=== PATIENT | female | born 1980 | race Caucasian/White ===

== ENCOUNTER 2020-12-07 21:25 | Inpatient (IN) | payer OTHER ==
[2020-12-07] MEDS ORDERED: LACTATED RINGERS 1,000 ML ONE (23:03)
[2020-12-07] MEDS ORDERED: AMPICILLIN/NS 2 GM/100 ML 2 GM/100 ML BAG IV ONE (23:14)
[2020-12-07] MEDS ORDERED: LIDOCAINE (2%) 20 MG/1 ML VIAL 20 ML MDV INFILTRATI ONE (23:14)
[2020-12-07] MEDS ORDERED: BUTORPHANOL 2 MG/1 ML INJ IV PRN ×2 (23:14)
[2020-12-07] MEDS ORDERED: ePHEDrine SULFATE 50 MG/1 ML INJ IV PRN (23:14)
[2020-12-07] MEDS ORDERED: TERBUTALINE 1 MG/1 ML INJ SUB-Q PRN (23:14)
[2020-12-07] MEDS ORDERED: MINERAL OIL 30 ML ORAL LIQD PO PRN (23:14)
--- NOTE | 2020-12-07 23:38 | History and Physical Report ---
History of Present Illness Date of examination: 12/07/20 Date of admission: 12/07/20 21:25 Chief complaint: " I was sent her by my doctor" History of present illness: 40 y/o female presents to [facility] L&D at 38.2 wks for an IOL r/t AMA and LGA. Pt denied LOF and VB. Admits to active FM. She initiated her pnc at [facility] at 7.5 wks. Pt had an uncomplicated preg except for a pos uti (staph aures) which was tx'd with abt, and a pos GBS. She has a pos Hep A, hx of delivering 10 lb infants x 4. She declined a MSAFP. Surg hx of D&C in 1998. Social and family hx neg. Pt was admitted to L&D for an IOL. Labs: O pos AB neg Rubella Immune, RPR neg, HgsAg neg UTI pos, HIV neg, MSAFP- declined Hgb 12.4 on 11/08/20, 1 hr GTT 102 GBS pos Past History Past Medical History: no pertinent history Past Surgical History: D&C Family/Genetic History: none Social history: - Obstetrical History Expected Date of Delivery: 12/19/20 Actual Gestation: 38 Week(s) 2 Day(s) : 7 Para: 4 Hx # Term Pregnancies: 4 Number of Pregnancies: 0 Spontaneous Abortions: 2 Induced : 0 Number of Living Children: 4 Medications and Allergies Allergies Allergy/AdvReac Type Severity Reaction Status Date / Time No Known Allergies Allergy Unverified 12/07/20 22:44 Home Medications Medication Instructions Recorded Confirmed Last Taken Type No.137/Iron/Folic Acd 1 each PO 12/07/20 12/06/20 History [[facility] Vitamins Tablet] Active Meds: Active Medications Butorphanol Tartrate (Butorphanol 2 Mg/1 Ml Inj) 1 mg IV Q2H PRN PRN Reason: Pain, Moderate(4-6) LABOR PAIN Butorphanol Tartrate (Butorphanol 2 Mg/1 Ml Inj) 2 mg IV Q2H PRN PRN Reason: Pain , Severe (7-10) Ephedrine Sulfate (Ephedrine Sulfate 50 Mg/1 Ml Inj) 10 mg IV Q2M PRN PRN Reason: Hypotension Fentanyl (Fentanyl 100 Mcg/2 Ml Inj) 100 mcg IV Q2H PRN PRN Reason: Pain,Severe (7-10) LABOR PAIN Oxytocin/Sodium Chloride (Pitocin/Ns 30 Unit/500ml) 30 units in 500 mls @ 2 mls/hr IV TITR GABI; Protocol Lactated Ringer's (Lactated Ringers) 1,000 mls @ 125 mls/hr IV DIRECT GABI Oxytocin/Sodium Chloride (Pitocin/Ns 30 Unit/500ml) 30 units in 500 mls @ 40 mls/hr IV TITR GABI; Protocol Ampicillin Sodium (Ampicillin/Ns 1 Gm/50 Ml) 1 gm in 50 mls @ 100 mls/hr IV Q4H GABI; Protocol Ampicillin Sodium (Ampicillin/Ns 2 Gm/100 Ml) 2 gm in 100 mls @ 100 mls/hr IV ONCE ONE; Protocol Stop: 12/08/20 00:13 Lidocaine (Lidocaine (2%) 20 Mg/1 Ml Vial 20 Ml Mdv) 20 ml INFILTRATI ONCE ONE Stop: 12/07/20 23:15 Mineral Oil (Mineral Oil 30 Ml Oral Liqd) 30 ml PO QHS PRN PRN Reason: Constipation Miscellaneous Medication ( No.137/Iron/Folic Acd [[facility]vs Vitamins Tablet]) 1 each PO QDAY GABI Terbutaline Sulfate (Terbutaline 1 Mg/1 Ml Inj) 0.25 mg SUB-Q ONCE PRN PRN Reason: Hyperstimulation/Hypertonicity Review of Systems All systems: negative Eyes: deferred Ears, nose, mouth and throat: deferred Breasts: normal Genitourinary: normal appearance Rectal Exam: deferred - Vital Signs Vital signs: Vital Signs Pulse BP 93 H 108/65 12/07/20 22:36 12/07/20 22:36 Temp Pulse Resp BP Pulse Ox 93 H 108/65 12/07/20 22:36 12/07/20 22:36 - Physical Exam Breasts: Positive: normal Abdomen: Positive: normal appearance, soft, normal bowel sounds, other (gravid) Genitourinary (Female): Positive: normal external genitalia, normal perenium Vulva: both: normal Vagina: Positive: normal moisture Uterus: Positive: enlarged, normal contour, other (gravid) Adnexa: both: normal Anus/Rectum: Positive: normal perianal skin Extremities: Positive: normal - Obstetrical FHR: auscultation normal, category 1 Uterine Contraction Monitor Mode: External Cervical Dilatation: 1 (per nurse) Cervical Effacement Percentage: 40 (per nurse) station: -3 Uterine Contraction Frequency (min): q5-6 Uterine Contraction Pattern: Regular Uterine Tone Measurement Phase: Resting Uterine Contraction Intensity: Mild Results All other labs normal. Assessment and Plan A: IUP@ 38.2 wks AMA, LGA Hx of 10lb infants x 4 GBS pos, Hep A pos P: Admit to L&D Continuous monitoring GBS prophylaxis Pain med/ Epidural prn Notify NICU of pt's med/ob hx Place Cervidil if uc slows Anticipate progress - Patient Problems (1) Term Current Visit: Yes Status: Acute (2) Positive GBS test Current Visit: Yes Status: Acute (3) AMA (advanced maternal age) multigravida 35+ Current Visit: Yes Status: Acute (4) LGA (large for gestational age) fetus Current Visit: Yes Status: Acute (5) Hepatitis A Current Visit: Yes Status: Acute
[2020-12-07] MEDS ORDERED: OXYTOCIN DRIP 30 UNITS/500 ML BAG IV SCH ×2 (23:45)
[2020-12-08 00:29] LABS: Hematocrit 38.8 % (30.3-42.9); Hemoglobin 13.2 gm/dl (10.1-14.3); Mean Corpuscular HGB Conc 34 % (30-34); Mean Corpuscular Volume 95 fl (79-97); Platelet Count 186 K/mm3 (140-440); Red Cell Distribution Width 13.7 % (13.2-15.2)
[2020-12-08] MEDS ORDERED: AMPICILLIN/NS 1 GM/50 ML 1 GM/50 ML BAG IV SCH (03:18)
[2020-12-08] MEDS ORDERED: DINOPROSTONE 10 MG VAG SUPP VG ONE (04:13)
[2020-12-08] MEDS: LACTATED RINGERS 1,000 ML IV SCH ×2 (05:30→11:16)
[2020-12-08] MEDS: fentaNYL 100 MCG/2 ML INJ IV PRN ×2 (08:28→11:13)
[2020-12-08] MEDS ORDERED: PRENATAL VIT27-FE FUMARATE-FOLIC ACID VIT TAB PO SCH (10:00)
[2020-12-08] MEDS ORDERED: AMPICILLIN/NS 2 GM/100 ML 2 GM/100 ML BAG IV ONE ×2 (11:09→11:11)
--- NOTE | 2020-12-08 11:18 | Event Note ---
Date: 12/08/20 Assumed care or patient. Patient reports contractions every 3 minutes. Meconium fluid noted on chux pad. SVE 4.5/60/-3/cephalic/posterior. Patient requests epidural. IV fluid bolus started. Informed nurse to give GBS prophylaxis. Cervidil removed. FHR tracing reassuring.
[2020-12-08] MEDS ORDERED: LIDOCAINE (2%) 20 MG/1 ML VIAL 20 ML MDV INFILTRATI ONE (12:29)
--- NOTE | 2020-12-08 13:30 | Procedure Note ---
OB Delivery Note - Delivery Date of Delivery: 12/08/20 Surgeon: RAMONA GUARDADO Estimated blood loss: 200cc - Vaginal Delivery presentation: vertex Delivery position: OA Intrapartum events: none Delivery induction: cervidil Delivery monitor: external FHT, external uterine Route of delivery: Delivery placenta: spontaneous Delivery cord: 3 umbilical vessels Episiotomy: none Delivery laceration: 2nd degree Delivery repair: vicryl Anesthesia: local Delivery comments: Spontaneous vaginal delivery at 12:22 of liveborn male weighing 7 lb. 11 oz. over 2nd degree perineal laceration with apgars of 8/9. Delivery was atraumatic; no nuchal cord. Baby was vigorous at and cried right away. Baby placed skin to skin with mom immediately after delivery and was dried with warm towels and suctioned with bulb syringe. 3 vessel cord double clamped and cut. Cord blood obtained. Spontaneous delivery of intact placenta and membranes by hager mechanism at 12:27. EBL 200 cc. Pitocin to IV fluids after delivery of placenta. Fundus firm and midline. 2nd degree perineal laceration repaired with 2-0 vicryl; Lidocaine used for local anesthetic. No other lacerations noted. Vaginal sweep negative. Sponge count correct. Mother and baby stable.
--- NOTE | 2020-12-08 17:32 | Event Note ---
Date: 12/08/20 Coronavirus positive. Discussed test results with patient. Patient denies cough, shortness of breath, fever, chills, or any other symptoms.
[2020-12-08] MEDS ORDERED: LANOLIN/ZINC/DIMETHICONE (LANSINOH) 7 GM TP PRN (20:17)
[2020-12-08] MEDS ORDERED: MAGNESIUM HYDROXIDE (MOM) ORAL LIQD UDC PO PRN (20:17)
[2020-12-08] MEDS ORDERED: WITCH HAZEL/ GLYCERIN PAD TP PRN (20:17)
[2020-12-09] MEDS: IBUPROFEN 600 MG TAB PO SCH ×2 (02:52→22:12)
[2020-12-09] MEDS: HYDROcodone/ACETAMINOPHEN 5-325 MG TAB PO PRN ×2 (06:20→16:26)
[2020-12-09 09:11] LABS: Hemoglobin 12.6 gm/dl (10.1-14.3)
--- NOTE | 2020-12-09 10:54 | Progress Note ---
Assessment and Plan A: day 1 S/P . Constipation. Coronavirus positive (asymptomatic). P: Take Colace BID. Increase fruits and veges in diet. Continue to monitor patient for s/sx of coronavirus. Anticipate discharge home tomorrow if patient continues to do well. Subjective - Subjective Date of service: 12/09/20 Principal diagnosis: day 1 S/P Interval history: Positive for coronavirus. Patient denies fever, chills, malaise, body aches, nausea or vomiting, cough, or shortness of breath. Patient reports constipation and was started on Colace earlier this morning. Patient states that while she was straining to have a BM early this morning she thought she might have popped a stitch on her perineum. Looked at perineum and tiny gap noted (appears one stitch may have come out). This area is very small and should heal well without any intervention. Patient was instructed re: avoiding straining and constipation and need to keep the area clean and free from infection. Patient reports: appetite normal, voiding normally, pain well controlled, flatus, bowel movement, ambulating normally, no dizzy ambulation, no nauseated [place]: doing well Objective - Vital Signs Latest vital signs: Vital Signs Temp Pulse Resp BP BP BP Pulse Ox 12/09/20 08:45 98.2 F 78 18 119/77 100 12/09/20 01:00 98.0 F 89 20 127/89 97 12/08/20 19:40 99.3 F 87 20 103/60 12/08/20 16:06 97.8 F 84 20 103/61 99 12/08/20 14:31 97.5 F L 69 19 101/55 96 12/08/20 13:50 74 99 12/08/20 13:48 93 H 94 12/08/20 13:45 78 99 12/08/20 13:42 85 102/58 93 12/08/20 13:40 76 100 12/08/20 13:35 87 100 12/08/20 13:30 81 97 12/08/20 13:26 83 100/59 12/08/20 13:25 78 99 12/08/20 13:20 69 99 12/08/20 13:15 80 99 12/08/20 13:11 76 102/55 12/08/20 13:10 85 98 12/08/20 13:05 95 H 98 12/08/20 13:00 86 100 12/08/20 12:58 99.1 F 76 104/57 12/08/20 12:55 91 H 100 12/08/20 12:50 87 100 12/08/20 12:45 88 100 12/08/20 12:41 88 97/55 12/08/20 12:40 91 H 100 12/08/20 12:38 78 93/51 12/08/20 12:35 80 99 12/08/20 12:30 76 100 12/08/20 12:27 71 90/56 12/08/20 12:25 70 100 12/08/20 12:22 64 90 12/08/20 12:20 83 98 12/08/20 12:15 85 100 12/08/20 12:13 66 20 90 12/08/20 12:10 78 100 12/08/20 12:05 79 90 12/08/20 12:00 71 100 12/08/20 11:58 57 L 93 12/08/20 11:55 75 99 12/08/20 11:50 75 100 12/08/20 11:45 75 100 12/08/20 11:40 87 100 12/08/20 11:35 80 99 12/08/20 11:31 69 93 12/08/20 11:30 77 96 12/08/20 11:25 69 99 12/08/20 11:20 74 100 12/08/20 11:15 76 99 12/08/20 11:13 18 12/08/20 11:10 76 94 12/08/20 11:06 98.2 F 82 20 121/77 121/77 100 12/08/20 11:05 69 99 Intake and Output 12/08/20 12/09/20 12/09/20 23:59 07:59 15:59 Intake Total 640 240 240 Output Total 700 Balance -60 240 240 Intake: Oral 540 240 240 Intake, Free Water 100 Output: Urine 700 Void 700 Other: Total, Intake Amount 240 240 240 Total, Output Amount 700 # Voids Void 1 1 - Exam Abdomen: Present: normal appearance, soft, normal bowel sounds. Absent: distention, tenderness, guarding, rigidity Uterus: Present: normal, firm, fundal height below umbilicus. Absent: bogginess, tenderness Extremities: Present: normal. Absent: tenderness, edema - Labs Labs: Abnormal lab results 12/08/20 Range/Units 09:20 Coronavirus (PCR) Positive A (Negative)
[2020-12-09] MEDS: DOCUSATE SODIUM 100 MG CAP PO SCH ×2 (16:26→22:13)
[2020-12-10] MEDS: IBUPROFEN 600 MG TAB PO SCH ×3 (05:00→10:22)
[2020-12-10] MEDS: DOCUSATE SODIUM 100 MG CAP PO SCH ×2 (10:22→22:15)
--- NOTE | 2020-12-10 11:18 | Progress Note ---
Assessment and Plan A: day 2 S/P . Positive for coronavirus but asymptomatic. P: Discharge patient home today. Discussed with patient discharge instructions and warning signs. Advised patient to avoid sexual intercourse, lifting, heavy housework, tub baths (may take showers), driving. Advised patient to continue taking her vitamins at home. Advised patient to rest at home and to follow up at [facility] clinic in 2 weeks. Patient voiced understanding of all instructions. Subjective - Subjective Date of service: 12/10/20 Principal diagnosis: day 2 S/P Interval history: Patient wants to go home today. Denies cough, shortness of breath, headache, chest pain, or heavy bleeding. Patient reports: appetite normal, voiding normally, pain well controlled, flatus, ambulating normally, no dizzy ambulation, no nauseated [place]: doing well, nursing well Objective - Vital Signs Latest vital signs: Vital Signs Temp Pulse Resp BP BP Pulse Ox 12/10/20 08:55 98.3 F 89 18 114/77 100 12/10/20 01:00 98.3 F 88 18 124/76 98 12/09/20 16:10 98.4 F 92 H 18 128/72 97 12/09/20 11:55 98.6 F 76 18 125/88 100 Intake and Output 12/09/20 12/10/20 12/10/20 23:59 07:59 15:59 Intake Total 240 360 240 Balance 240 360 240 Intake: Oral 240 360 240 Other: Total, Intake Amount 240 120 240 # Voids Void 1 1 - Exam Cardiovascular: Present: Regular rate Lungs: Present: Clear to auscultation Abdomen: Present: normal appearance, soft, normal bowel sounds. Absent: distention, tenderness, guarding, rigidity Uterus: Present: normal, firm, fundal height below umbilicus. Absent: bogginess, tenderness Extremities: Present: normal. Absent: tenderness, edema
--- NOTE | 2020-12-10 11:25 | Discharge Summary ---
Providers - Providers Date of Admission: 12/07/20 21:25 Date of discharge: 12/10/20 Attending physician: ILYA RAMIREZ Primary care physician: ILYA RAMIREZ Hospitalization Reason for admission: active labor Delivery: Episiotomy: none Laceration: 2nd degree Other procedures: none complications: none Discharge diagnosis: IUP at term delivered baby: male Pertinent studies: Labs Hospital course: Stable hospital course Condition at discharge: Good Disposition: DC-01 TO HOME OR SELFCARE - Discharge Diagnoses (1) Term delivered Status: Acute Plan - Provider Discharge Summary Activity: routine, no sex for 6 weeks, no heavy lifting 4 weeks, no strenuous exercise Diet: routine Instructions: routine Additional instructions: Continue taking your vitamin daily at home. Rest at home for 2 weeks. Follow up at [facility] clinic in 2 weeks. Call your doctor immediately for: * Fever > 100.5 * Heavy vaginal bleeding ( >1 pad per hour) * Severe persistent headache * Shortness of breath * Reddened, hot, painful area to leg or breast - Follow up plan Follow up: ILYA RAMIREZ MD [Primary Care Provider] - 14 Days Forms: [facility] Discharge Summary
--- NOTE | 2020-12-10 19:26 | Event Note ---
Date: 12/10/20 Nurse states patient may be depressed. Case management consult and MH consult ordered. Discharge cancelled.
[2020-12-10] MEDS: HYDROcodone/ACETAMINOPHEN 5-325 MG TAB PO PRN (22:15)
[2020-12-11] MEDS: IBUPROFEN 600 MG TAB PO SCH ×2 (00:13→06:06)
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
[2020-12-11 11:47] VITALS: BP 113/78
== END 2020-12-11 13:34 | disposition home or self-care (01) | DRG 805 ==
LOC: LD 21:25 → OB 12-08 15:38
PROVIDERS: ADMIT Obstetrics & Gynecology; ATTEND Obstetrics & Gynecology
PROC: 10E0XZZ Delivery of Products of Conception, External Approach (ICD-10-PCS; principal; 2020-12-08)
PROC: 0KQM0ZZ Repair Perineum Muscle, Open Approach (ICD-10-PCS; 2020-12-08)
PROC: 3E0P7VZ Introduction of Hormone into Female Reproductive, Via Natural or Artificial Opening (ICD-10-PCS; 2020-12-08)
DX: O99.824 Streptococcus B carrier state complicating childbirth (principal); U07.1 COVID-19; Z37.0 Single live birth; O98.42 Viral hepatitis complicating childbirth; B15.9 Hepatitis A without hepatic coma; O98.52 Other viral diseases complicating childbirth; Z3A.38 38 weeks gestation of pregnancy; O70.1 Second degree perineal laceration during delivery; Z3A.40 40 weeks gestation of pregnancy
CPT/HCPCS: 36415; 59200; 85014; 85018; 85027; 86850; 86900; 86901; G0378; A6250; J0290; J3010; J7120; U0003

== ENCOUNTER 2021-04-15 19:24 | Emergency (ER) | payer OTHER, SELFPAY ==
--- NOTE | 2021-04-15 19:56 | Event Note ---
ED Screening Note ED Screening Note: Language interpretation by Jos, computer security coordinator Patient brought in by her The states that she had a baby in December 2020 and since delivery she has had very erratic behavior He states that she has been hearing voices and has suicidal ideations He states that twice she has said that she "wanted to " Difficult to obtain history from patient She continues to talk about her baby and she is concerned about her baby She was speaking erratically and said that she was worried her breast milk was doing something to her baby or hurt her baby The states that at the end of her she told him he needed to take a fraternity test and that she called the police and she was having a lot of hallucinations states that they have 5 children this is never happened before He states that she has no known psych history He states that this all started in December This initial assessment/diagnostic orders/clinical plan/treatment(s) is/are subject to change based on patients health status, clinical progression and re- assessment by fellow clinical providers in the ED. Further treatment and workup at subsequent clinical providers discretion. Patient/guardian urged not to elope from the ED as their condition may be serious if not clinically assessed and managed. Initial orders include: mental health orders ED hold Charge nurse Koki advised the patient needs room in the psych area [facility]
[2021-04-15 20:10] LABS: Basophils % (Auto) 0.6 % (0.0-1.8); Eosinophils # (Auto) 0.1 K/mm3 (0.0-0.4); Eosinophils % (Auto) 1.1 % (0.0-4.3); Hematocrit 40.5 % (30.3-42.9); Hemoglobin 14.4 gm/dl (10.1-14.3); Lymphocytes # (Auto) 1.4 K/mm3 (1.2-5.4); Lymphocytes % (Auto) 20.6 % (13.4-35.0); Mean Corpuscular HGB Conc 36 % (30-34); Mean Corpuscular Volume 94 fl (79-97); Monocytes # (Auto) 0.5 K/mm3 (0.0-0.8); Monocytes % (Auto) 7.6 % (0.0-7.3); Platelet Count 223 K/mm3 (140-440); Red Blood Count 4.29 M/mm3 (3.65-5.03); Red Cell Distribution Width 12.7 % (13.2-15.2)
--- NOTE | 2021-04-15 20:21 | Emergency Department Report ---
ED Psych HPI - General Chief Complaint: Altered Mental Status Stated Complaint: POSSIBLE DEPRESSION Time Seen by Provider: 04/15/21 19:53 Source: patient, family Mode of arrival: Ambulatory - History of Present Illness Initial Comments: Chief complaint: Hearing voices will not say anything HPI: This is a 40-year-old female without significant past medical history pr esents since suicidal ideation auditory hallucinations. History obtained from . According to patient has been hearing voices. She stated that she wants to . Symptoms have been present since December. Patient has had erratic behavior. She has poor appetite. Patient will not cooperate with history taking. concerned that she may harm the baby. According to electronic medical record, patient was evaluated by psychiatry team for concerns of depression in December at this hospital while admitted for child delivery. At that time supportive psychotherapy was recommended. MD Complaint: suicidal ideation, feels depressed, altered mental status -: Gradual, month(s) (4 months ago) Associated Psychiatric Symptoms: depression, suicidal ideation, auditory hallucinations History of same: Yes Quality: constant Improves With: none Worsens With: none Context: other (Recently delivered a baby here at this hospital in December) Associated Symptoms: other (Poor appetite) If Self Harm: admits thoughts of - Related Data Home Medications Medication Instructions Recorded Confirmed Last Taken No.137/Iron/Folic Acd 1 each PO QDAY 12/07/20 12/08/20 12/08/20 03:00 [[facility] Vitamins Tablet] Allergies Allergy/AdvReac Type Severity Reaction Status Date / Time No Known Allergies Allergy Unverified 12/07/20 22:44 ED Review of Systems ROS: Stated complaint: POSSIBLE DEPRESSION Other details as noted in HPI Comment: Unobtainable due to pts medical conditions (Patient would not cooperate with history) ED Past Medical Hx - Past Medical History Previous Medical History?: No Hx Hypertension: No Hx Diabetes: No Hx Deep Vein Thrombosis: No Hx Renal Disease: No Hx Sickle Cell Disease: No Hx Seizures: No Hx Asthma: No Hx HIV: No - Surgical History Past Surgical History?: No - Social History Smoking Status: Never Smoker Substance Use Type: None - Medications Home Medications: Home Medications Medication Instructions Recorded Confirmed Last Taken Type No.137/Iron/Folic Acd 1 each PO QDAY 12/07/20 12/08/20 12/08/20 03:00 History [[facility]vs Vitamins Tablet] ED Physical Exam - General Limitations: Language Barrier General appearance: alert, in no apparent distress, other (Flat affect, poor eye contact, poor hygiene, disheveled dirty clothing,) - Head Head exam: Present: atraumatic, normocephalic - Eye Eye exam: Present: normal appearance - ENT ENT exam: Present: mucous membranes moist - Neck Neck exam: Present: normal inspection, full ROM - Respiratory Respiratory exam: Present: normal lung sounds bilaterally. Absent: respiratory distress, wheezes, rales, rhonchi - Cardiovascular Cardiovascular Exam: Present: regular rate, normal rhythm, normal heart sounds. Absent: systolic murmur, diastolic murmur, rubs, gallop - GI/Abdominal GI/Abdominal exam: Present: soft, normal bowel sounds. Absent: distended, tenderness, guarding, rebound - Extremities Exam Extremities exam: Present: normal inspection - Neurological Exam Neurological exam: Present: alert, other (Patient will not answer questions) - Psychiatric Psychiatric exam: Present: depressed, flat affect - Skin Skin exam: Present: warm, dry, intact, normal color. Absent: rash ED Course Vital Signs 04/15/21 19:30 Temperature 98.3 F Pulse Rate 109 H Respiratory 18 Rate Blood Pressure 125/80 O2 Sat by Pulse 98 Oximetry - Reevaluation(s) Reevaluation #1: 04/15/21 21:17 I reassessed patient. She is standing. She appears in a daze. ED Medical Decision Making - Lab Data Result diagrams: 04/15/21 19:59 04/15/21 19:59 - Medical Decision Making Clinical impression: depression with psychotic features, 1013 form completed, ED hold ordered, patient is medically clear for psychiatric care. CBC chemistry serum toxicology all within normal limits. Critical care attestation.: If time is entered above; I have spent that time in minutes in the direct care of this critically ill patient, excluding procedure time. ED Disposition Clinical Impression: depression, depression associated with fifth Disposition: DC/TX-70 ANOTHER TYPE HLTHCARE Is pt being admited?: No Does the pt Need Aspirin: No Condition: Stable
[2021-04-15 20:35] LABS: Alanine Aminotransferase 13 units/L (7-56); Albumin 4.5 g/dL (3.9-5); BUN/Creatinine Ratio 28; Blood Urea Nitrogen 17 mg/dL (7-17); Calcium 9.4 mg/dL (8.4-10.2); Hemolysis Index 5
[2021-04-15] MEDS ORDERED: LORazepam 2 MG/ML VIAL IM ONE (20:43)
[2021-04-16 05:08] LABS: Amphetamine Screen,Urine Negative; Benzodiazepines Screen,Urine Negative; Cannabinoid Screen,Urine Negative; Cocaine Screen,Urine Negative; Methadone Screen,Urine Negative; Opiate Screen,Urine Negative
[2021-04-16 05:09] LABS: Bacteria,Urine 1+ /HPF (Negative); Bilirubin,Urine NEG (Negative); Blood,Urine NEG (Negative); Color,Urine Yellow (Yellow); Mucus,Urine 3+ /HPF
[2021-04-16 08:54] VITALS: BP 103/70
--- NOTE | 2021-04-16 13:15 | Consultation ---
History of Present Illness - Reason for Consult Consult date: 04/16/21 Reason for consult: MHE Requesting physician: JOSEPHINE FORD - History of Present Psychiatric Illness Per ED Provider: This is a 40-year-old female without significant past medical history presents since suicidal ideation auditory hallucinations. History obta ined from . According to patient has been hearing voices. She stated that she wants to . Symptoms have been present since December. Patient has had erratic behavior. She has poor appetite. Patient will not cooperate with history taking. concerned that she may harm the baby. PSYCH HPI Patient is a 40 year old unemployed female who presents to the ED by with complaints of Hallucinations by . ED notes reviewed per HPI provided by . Patient states that she just gave 4 months ago, and whenever she has a baby she just starts feeling depressed, and stressed. She endorses that she is breast is breast feeding, denies any abuse by , denies thoughts of self harm or hearing voices. Patient describes a good and stable mood, denies being depressed or excessively nervous. Patient eats and sleeps well. Patient denies panic attacks, recurrent nightmares or flashbacks. Patient denies symptoms suggestive of OCD or PTSD. Patient denies hallucinations, paranoia, thought interference and no features suggestive of hypomania or sd. Patiently completely denies suicidal or homicidal thoughts. PAST PSYCHIATRIC HISTORY Diagnoses: post depression Suicide attempts or Self-harm behavior: none Prior psychiatric hospitalizations: none Substance Abuse history: none Previous psychiatric medications tried: none Outpatient treatment: PAST MEDICAL HISTORY: none reported Family Psychiatric History: None reported or documented SOCIAL HISTORY Marital Status: Living Arrangements: with Employment Status: unemployed Access to guns/weapons: none reported Education: GED History of Abuse: none reported Legal History: none REVIEW OF SYSTEMS Constitutional: Negative for weight loss ENT: Negative for stridor Respiratory: Negative for cough or hemoptysis All other systems reviewed and are negative MENTAL STATUS EXAMINATION General Appearance and Behavior: Age appropriate, good hygiene, wearing appropriate clothes,, good eye contact Cooperation: Participating/engaged, but Guarded Psychomotor Behavior: Psychomotor normal Mood: depressed Affect and affective range: irritable, labile Thought Process: illogical Thought Content: hopelessness, helplessness Speech: Normal rate, volume and rythm Intellectual Functioning: Average Suicidal Ideation: denies SI Homicidal Ideation: Denies HI Impulse Control: Impaired Insight and Judgment: Limited insight and judgment Memory: Normal Attention: Normal Orientation: Alert, oriented Diagnoses: Assessment and Plan - Psychiatric problem (1) depression Current Visit: Yes Status: Acute )99.345 Treatment Plan Discussed with for outpt counselling and follow up MEDICATIONS: Risks, benefits and alternatives of medications discussed with the patient, questions answered and consent obtained from patient. PSYCHOTHERAPY: Supportive psychotherapy provided MEDICAL: Per primary team DELIRIUM PRECAUTIONS: Please re-orient patient frequently, keep lights on during the day, and minimize benzodiazepines and opiates as these medications could worsen patient's confusion. GRAPHIC ARTIST: DISPOSITION: Do Not Recommend acute inpatient psychiatric hospitalization at this time. Case discussed with Dr. Sotelo who agrees with current disposition LEGAL STATUS: 1013 rescinded FOLLOW-UP: Will sign off Thank you for the consult. Please contact with any questions and/or concerns. Medications and Allergies Allergies Allergy/AdvReac Type Severity Reaction Status Date / Time No Known Allergies Allergy Unverified 12/07/20 22:44 Home Medications Medication Instructions Recorded Confirmed Last Taken Type No.137/Iron/Folic Acd 1 each PO QDAY 12/07/20 12/08/20 12/08/20 03:00 History [[facility] Tablet] Sertraline [Zoloft] 25 mg PO QDAY #30 tab 04/16/21 Unknown Rx Mental Status Exam - Vital signs Last Vital Signs Temp 98.6 F 04/16/21 08:53 Pulse 70 04/16/21 08:53 Resp 20 04/16/21 08:53 BP 103/70 04/16/21 08:53 Pulse Ox 98 04/16/21 08:53 Results Result Diagrams: 04/15/21 19:59 04/15/21 19:59 Abnormal lab results 04/15/21 04/15/21 04/15/21 Range/Units 19:59 19:59 19:59 Hgb 14.4 H (10.1-14.3) gm/dl MCH 34 H (28-32) pg MCHC 36 H (30-34) % RDW 12.7 L (13.2-15.2) % [place] % (Auto) 7.6 H (0.0-7.3) % Seg Neutrophils % 70.1 H (40.0-70.0) % Carbon Dioxide 18 L (22-30) mmol/L Ur Specific [place] (1.003-1.030) Salicylates < 0.3 L (2.8-20.0) mg/dL Acetaminophen (10.0-30.0) ug/mL 04/15/21 04/16/21 Range/Units 19:59 Unknown Hgb (10.1-14.3) gm/dl MCH (28-32) pg MCHC (30-34) % RDW (13.2-15.2) % [place] % (Auto) (0.0-7.3) % Seg Neutrophils % (40.0-70.0) % Carbon Dioxide (22-30) mmol/L Ur Specific [place] 1.040 H (1.003-1.030) Salicylates (2.8-20.0) mg/dL Acetaminophen 5.0 L (10.0-30.0) ug/mL All other labs normal. Assessment and Plan - Psychiatric problem (1) depression Current Visit: Yes Status: Acute
== END 2021-04-16 14:01 | disposition home or self-care (01) ==
LOC: ED 19:24
DX: O99.345 Other mental disorders complicating the puerperium (principal); F32.9 Major depressive disorder, single episode, unspecified; Z79.899 Other long term (current) drug therapy; Z20.822 Contact with and (suspected) exposure to COVID-19
CPT/HCPCS: 36415; 80053; 80307; 81001; 84703; 85025; 96372; 99284; J2060; U0003; 80320; G0480